=== PATIENT | female | born 2005 | race Caucasian/White ===

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

== ENCOUNTER 2025-10-03 05:22 | Outpatient (CLI) | payer BC ==
[~2025-10-03] VITALS: Ht 167.6 cm; Wt 128.7 kg
[~2025-10-03 05:22] MED LIST changes: -ACETAMINOPHEN 500 MG TAB PO ONE; -CelecoXIB 400 MG CAP PO ONE; +ECOT81TA5 PO; -GABAPENTIN 300 MG CAP PO ONE; -NS 1,000 ML IV ONE; -ONDANSETRON 4MG 2ML VIAL IV ONE; +OXYC-517 PO; +SENN8.6T58 PO
[2025-10-03 05:44] VITALS: BP 126/76
[2025-10-03] MEDS ORDERED: ACET-907 PO (05:56)
[2025-10-03] MEDS ORDERED: PRENTAB9 PO (05:56)
[2025-10-03 06:47] VITALS: BP 115/70
[2025-10-03 07:53] VITALS: BP 131/72
== END 2025-10-03 09:32 | disposition home or self-care (01) ==
LOC: M LDO 05:22
PROVIDERS: ATTEND Obstetrics & Gynecology
DX: O47.03 False labor before 37 completed weeks of gestation, third trimester (principal); O99.013 Anemia complicating pregnancy, third trimester; O99.213 Obesity complicating pregnancy, third trimester; D50.9 Iron deficiency anemia, unspecified; E66.9 Obesity, unspecified; Z3A.33 33 weeks gestation of pregnancy
CPT/HCPCS: 59025; G0463